=== PATIENT | male | born 1985 | race Asian ===

== ENCOUNTER 2021-10-27 18:20 | Emergency (ER) | payer MEDICAID ==
[~2021-10-27] VITALS: Ht 160 cm; Wt 65.9 kg
[2021-10-27 19:32] VITALS: BP 137/82
== END 2021-10-27 19:33 | disposition home or self-care (01) ==
LOC: EDSEX 18:25 → EMS 18:25
DX: R42 Dizziness and giddiness (principal); R20.0 Anesthesia of skin
CPT/HCPCS: 99282; 99283